=== PATIENT | female | born 1985 | race Two or more races ===

== ENCOUNTER 2016-12-02 10:02 | Inpatient (IN) | payer OTHER ==
[~2016-12-02] VITALS: Ht 157.5 cm; Wt 55.0 kg
[2016-12-02 11:22] LABS: CALCIUM 8.6 mg/dL (8.5-10.1); CARBON DIOXIDE 25.3 mmol/L (21-32); CHLORIDE SERUM 106 mmol/L (98-107); CREATININE SERUM 0.8 mg/dL (0.6-1.0); GFR1 > 60 mL/min; GLUCOSE SERUM 99 mg/dL (74-106); POTASSIUM SERUM 3.3 mmol/L (3.5-5.1); SODIUM SERUM 138 mmol/L (136-145)
[2016-12-02 11:29] LABS: ALBUMIN 3.6 g/dL (3.4-5.0); ALKALINE PHOSPHATASE 78 U/L (46-116); ALT/SGPT 17 U/L (14-59); AST/SGOT 14 U/L (15-37); BILIRUBIN TOTAL 0.4 mg/dL (0.20-1.00); TOTAL PROTEIN, SERUM 7.3 g/dL (6.4-8.2)
[2016-12-02 12:09] LABS: PLATELET COUNT 289 x10^3mcL (130-400)
[2016-12-02 12:13] LABS: RED CELL DISTRIBUTION WIDTH 22.2 % (11.5-14.5)
[2016-12-02 12:31] LABS: ATYPICAL LYMPH 1 %; MONOCYTE 8 % (0-7); SEGMENTED NEUTROPHILS 70 % (37-75); rbc morphology (normal/abnorm) NORMAL (NORMAL)
[2016-12-02 12:32] LABS: schistocyte (helmet cell) 2+
[2016-12-02 12:33] LABS: PLATELET MORPHOLOGY PLATELETS NORMAL; ovalocyte/elliptocyte 3+
[2016-12-02 15:18] LABS: FREE T4 1.08 ng/dL (0.76-1.46); FREE THYROXINE INDEX 2.7 ug/dL (1.4-4.5); T4(THYROXINE) 8.3 ug/dL (4.7-13.3)
[2016-12-02 15:20] LABS: T3 TOTAL 1.17 ng/mL
[2016-12-02 16:19] VITALS: BP 105/60
[2016-12-02 17:54] VITALS: BP 112/68
[2016-12-02 21:08] VITALS: BP 114/66
[2016-12-02 21:15] VITALS: BP 108/59
[2016-12-02 21:16] VITALS: BP 110/53
[2016-12-02 23:07] LABS: microscopic required? NO
[2016-12-02 23:29] LABS: UA SPECIFIC GRAVITY 1.015 (1.005-1.035); urine erythrocyte NEGATIVE (NEGATIVE)
[2016-12-03] VITALS (7 sets, daily range): BP systolic 91–103; BP diastolic 47–58
[2016-12-03 00:04] LABS: AMPHETAMINE QUAL UR NONE DETECTED (NEG <=1000)
[2016-12-03 04:19] LABS: BASOPHIL % 0.7 % (0-2); PLATELET COUNT 171 x10^3mcL (130-400); RED CELL DISTRIBUTION WIDTH 34.7 % (11.5-14.5)
[2016-12-03 04:30] LABS: CALCIUM 8.5 mg/dL (8.5-10.1); CARBON DIOXIDE 26.5 mmol/L (21-32); CHLORIDE SERUM 108 mmol/L (98-107); CREATININE SERUM 0.9 mg/dL (0.6-1.0); GFR1 > 60 mL/min; GLUCOSE SERUM 91 mg/dL (74-106); MAGNESIUM 1.9 mg/dL (1.8-2.4); PHOSPHOROUS 4.2 mg/dL (2.5-4.9); POTASSIUM SERUM 3.9 mmol/L (3.5-5.1); SODIUM SERUM 143 mmol/L (136-145)
[2016-12-03 16:38] LABS: PLATELET COUNT 168 x10^3mcL (130-400)
[2016-12-03 17:25] LABS: METAMYELOCTE 1 % (0-2); MONOCYTE 8 % (0-7); SEGMENTED NEUTROPHILS 70 % (37-75); rbc morphology (normal/abnorm) ABNORMAL (NORMAL)
[2016-12-03 17:26] LABS: ovalocyte/elliptocyte 1+; target cell (codocyte) 1+; tear drop cell (dacryocyte) 1+
[2016-12-04 06:28] VITALS: BP 91/45
[2016-12-04 06:33] LABS: CALCIUM 8.4 mg/dL (8.5-10.1); CARBON DIOXIDE 24.5 mmol/L (21-32); CHLORIDE SERUM 105 mmol/L (98-107); CREATININE SERUM 0.8 mg/dL (0.6-1.0); GFR1 > 60 mL/min; GLUCOSE SERUM 80 mg/dL (74-106); MAGNESIUM 1.8 mg/dL (1.8-2.4); PHOSPHOROUS 4.2 mg/dL (2.5-4.9); SODIUM SERUM 138 mmol/L (136-145)
[2016-12-04 06:42] LABS: BASOPHIL % 0.7 % (0-2); PLATELET COUNT 164 x10^3mcL (130-400)
[2016-12-04 06:58] LABS: RED CELL DISTRIBUTION WIDTH 35.7 % (11.5-14.5)
[2016-12-04 07:50] LABS: rbc morphology (normal/abnorm) ABNORMAL (NORMAL)
[2016-12-04 07:51] LABS: tear drop cell (dacryocyte) 1+
[2016-12-04 10:20] VITALS: BP 104/56
[2016-12-04 11:35] VITALS: BP 104/56
[2016-12-04] MEDS ORDERED: MOT600 PO (13:25)
[2016-12-04] MEDS ORDERED: FER300 PO (13:41)
[2016-12-04] MEDS ORDERED: VITC PO (13:42)
== END 2016-12-04 14:25 | disposition home or self-care (01) | DRG 517 ==
LOC: ED 10:02 → DU 14:17 → MU 12-04 11:01
PROVIDERS: Emergency Medicine; ADMIT Family Medicine
PROC: 0UDB7ZZ Extraction of Endometrium, Via Natural or Artificial Opening (ICD-10-PCS; principal; 2016-12-02)
PROC: 30233N1 Transfusion of Nonautologous Red Blood Cells into Peripheral Vein, Percutaneous Approach (ICD-10-PCS; principal; 2016-12-02)
DX: N92.1 Excessive and frequent menstruation with irregular cycle (principal); D62 Acute posthemorrhagic anemia; N93.8 Other specified abnormal uterine and vaginal bleeding; D25.9 Leiomyoma of uterus, unspecified; E87.6 Hypokalemia; Z87.891 Personal history of nicotine dependence
CPT/HCPCS: 83880; 84439; 85060; J2250; J3010; J7030; J7050; P9016; Q0092

== ENCOUNTER 2016-12-05 12:45 | Emergency (ER) | payer OTHER ==
[~2016-12-05] VITALS: Ht 157.5 cm; Wt 53.3 kg
[~2016-12-05 12:45] MED LIST: FER300 PO; MOT600 PO; VITC PO
[2016-12-05 12:48] VITALS: BP 117/68
[2016-12-05 13:50] LABS: microscopic required? YES; urine erythrocyte NEGATIVE (NEGATIVE)
[2016-12-05 13:57] LABS: CALCIUM 8.9 mg/dL (8.5-10.1); CARBON DIOXIDE 25.7 mmol/L (21-32); CHLORIDE SERUM 107 mmol/L (98-107); CREATININE SERUM 0.7 mg/dL (0.6-1.0); GFR1 > 60 mL/min; GLUCOSE SERUM 94 mg/dL (74-106); POTASSIUM SERUM 3.9 mmol/L (3.5-5.1); SODIUM SERUM 142 mmol/L (136-145)
[2016-12-05 14:02] LABS: ALBUMIN 3.6 g/dL (3.4-5.0); ALKALINE PHOSPHATASE 75 U/L (46-116); ALT/SGPT 16 U/L (14-59); AST/SGOT 20 U/L (15-37); BILIRUBIN DIRECT 0.11 mg/dL (0.0-0.2); BILIRUBIN TOTAL 0.48 mg/dL (0.20-1.00); TOTAL PROTEIN, SERUM 7.3 g/dL (6.4-8.2)
[2016-12-05 14:19] LABS: PLATELET COUNT 153 x10^3mcL (130-400)
[2016-12-05 14:21] LABS: RED CELL DISTRIBUTION WIDTH 36.4 % (11.5-14.5)
[2016-12-05 14:24] LABS: BAND NEUTROPHIL 0 % (0-10); BASOPHIL 0 % (0-2); SEGMENTED NEUTROPHILS 77 % (37-75); rbc morphology (normal/abnorm) ABNORMAL (NORMAL)
[2016-12-05 14:25] LABS: PLATELET MORPHOLOGY PLATELETS DECREASED
== END 2016-12-05 14:47 | disposition home or self-care (01) ==
LOC: ED 12:45
PROVIDERS: Emergency Medicine
DX: D64.9 Anemia, unspecified (principal); N93.9 Abnormal uterine and vaginal bleeding, unspecified
CPT/HCPCS: 36415; 83880

== ENCOUNTER 2017-01-17 10:14 | Emergency (ER) | payer OTHER ==
[~2017-01-17] VITALS: Ht 157.5 cm; Wt 53.5 kg
[2017-01-17 11:07] LABS: UA SPECIFIC GRAVITY <=1.005 (1.005-1.035); microscopic required? YES; urine erythrocyte 3+ (NEGATIVE)
[2017-01-17 11:16] LABS: BASOPHIL % 0.2 % (0-2); PLATELET COUNT 164 x10^3mcL (130-400)
[2017-01-17 11:17] LABS: CALCIUM 8.3 mg/dL (8.5-10.1); CARBON DIOXIDE 26.1 mmol/L (21-32); CHLORIDE SERUM 104 mmol/L (98-107); CREATININE SERUM 0.8 mg/dL (0.6-1.0); GFR1 > 60 mL/min; GLUCOSE SERUM 91 mg/dL (74-106); RED CELL DISTRIBUTION WIDTH 16.1 % (11.5-14.5); SODIUM SERUM 140 mmol/L (136-145)
[2017-01-17 11:22] LABS: ALBUMIN 3.6 g/dL (3.4-5.0); ALKALINE PHOSPHATASE 80 U/L (46-116); ALT/SGPT 21 U/L (14-59); AST/SGOT 16 U/L (15-37); TOTAL PROTEIN, SERUM 7.3 g/dL (6.4-8.2)
[2017-01-17 12:43] VITALS: BP 124/74
== END 2017-01-17 12:43 | disposition home or self-care (01) ==
LOC: ED 10:14
PROVIDERS: Specialist
DX: N92.0 Excessive and frequent menstruation with regular cycle (principal); D25.9 Leiomyoma of uterus, unspecified
CPT/HCPCS: 36415; J7030

== ENCOUNTER 2017-12-01 22:32 | Emergency (ER) | payer OTHER ==
[~2017-12-01] VITALS: Ht 157.5 cm; Wt 54.4 kg
[2017-12-01 22:44] VITALS: Ht 157.5 cm; Wt 54.4 kg
[2017-12-01 23:58] LABS: BASOPHIL % 0.5 % (0-2); PLATELET COUNT 342 x10^3mcL (130-400)
[2017-12-02 00:12] LABS: CALCIUM 8.7 mg/dL (8.5-10.1); CARBON DIOXIDE 28.1 mmol/L (21-32); CHLORIDE SERUM 104 mmol/L (98-107); CREATININE SERUM 0.8 mg/dL (0.6-1.0); GFR1 > 60 mL/min; GLUCOSE SERUM 87 mg/dL (74-106); POTASSIUM SERUM 3.3 mmol/L (3.5-5.1); SODIUM SERUM 140 mmol/L (136-145)
[2017-12-02 00:16] LABS: ALBUMIN 3.6 g/dL (3.4-5.0); ALKALINE PHOSPHATASE 83 U/L (46-116); ALT/SGPT 20 U/L (14-59); AST/SGOT 14 U/L (15-37); BILIRUBIN TOTAL 0.3 mg/dL (0.20-1.00); CHOLESTEROL 141 mg/dL (<200); CHOLESTEROL/HDL RATIO 2.7; HDL CHOLESTEROL 52 mg/dL (40-60); LIPASE 100 IU/L (73-393); TOTAL PROTEIN, SERUM 7.3 g/dL (6.4-8.2); TRIGLYCERIDES 75 mg/dL (<150)
[2017-12-02 00:49] LABS: FREE T4 1.22 ng/dL (0.76-1.46); FREE THYROXINE INDEX 3.6 ug/dL (1.4-4.5); T4(THYROXINE) 10.9 ug/dL (4.7-13.3)
[2017-12-02 00:50] LABS: T3 TOTAL 1.52 ng/mL
[2017-12-02 01:31] VITALS: BP 100/51
== END 2017-12-02 01:31 | disposition home or self-care (01) ==
LOC: ED 22:32
PROVIDERS: Specialist
DX: R07.89 Other chest pain (principal); R00.2 Palpitations; R06.02 Shortness of breath; D53.9 Nutritional anemia, unspecified
CPT/HCPCS: 36415; 83880; 84439

== ENCOUNTER 2018-06-12 17:43 | Emergency (ER) | payer OTHER ==
[~2018-06-12] VITALS: Ht 157.5 cm; Wt 54.9 kg
[2018-06-12 18:11] VITALS: Ht 157.5 cm; Wt 54.9 kg
[2018-06-12 19:43] LABS: BASOPHIL % 0.5 % (0-2); PLATELET COUNT 266 x10^3mcL (130-400)
[2018-06-12 19:44] LABS: RED CELL DISTRIBUTION WIDTH 20.8 % (11.5-14.5)
[2018-06-12 19:50] LABS: CALCIUM 8.4 mg/dL (8.5-10.1); CARBON DIOXIDE 27.8 mmol/L (21-32); CHLORIDE SERUM 104 mmol/L (98-107); CREATININE SERUM 0.8 mg/dL (0.6-1.0); GFR1 > 60 mL/min; GLUCOSE SERUM 94 mg/dL (74-106); POTASSIUM SERUM 3.9 mmol/L (3.5-5.1); SODIUM SERUM 140 mmol/L (136-145)
[2018-06-12 20:03] LABS: ALBUMIN 3.4 g/dL (3.4-5.0); ALKALINE PHOSPHATASE 77 U/L (46-116); ALT/SGPT 22 U/L (14-59); AST/SGOT 15 U/L (15-37); CHOLESTEROL 136 mg/dL (<200); HDL CHOLESTEROL 44 mg/dL (40-60); MAGNESIUM 2.1 mg/dL (1.8-2.4); T4(THYROXINE) 8.4 ug/dL (4.7-13.3); TOTAL PROTEIN, SERUM 7.2 g/dL (6.4-8.2)
[2018-06-12 20:08] LABS: rbc morphology (normal/abnorm) ABNORMAL (NORMAL)
[2018-06-12 20:09] LABS: ovalocyte/elliptocyte 1+
[2018-06-12 20:18] LABS: UA SPECIFIC GRAVITY 1.015 (1.005-1.035); microscopic required? YES; urine erythrocyte 3+ (NEGATIVE)
[2018-06-12 21:31] VITALS: BP 108/62
== END 2018-06-12 21:31 | disposition home or self-care (01) ==
LOC: ED 17:43
PROVIDERS: Emergency Medicine
DX: D25.9 Leiomyoma of uterus, unspecified (principal); R55 Syncope and collapse; N93.8 Other specified abnormal uterine and vaginal bleeding; D64.9 Anemia, unspecified
CPT/HCPCS: 82962; J7030; Q0092